=== PATIENT | female | born 2005 | race Caucasian/White ===

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

== ENCOUNTER 2024-01-01 23:40 | Emergency (ER) | payer BC, MEDICAID, SELFPAY ==
--- NOTE | ~2024-01-01 | XR_ITS ---
EXAMINATION: XR CHEST CLINICAL INFORMATION: Cough. COMPARISON: 04/20/2012. TECHNIQUE: 2 views of the chest were obtained. FINDINGS: No significant abnormality is noted involving the heart, lungs, mediastinum, bony thorax or soft tissues. XR/XR chest 2V IMPRESSION: Unremarkable examination.
[2024-01-01 23:48] VITALS: BP 122/76; PULSE 110; RESP 19; TEMP 37.7; O2SAT 100; BMI 40.5
--- NOTE | 2024-01-02 00:23 | MHC.EDTECH ---
Patient brought to triage,labs,sars/flu/rsv,and strep obtained and sent to lab.
--- OUTSIDE RECORDS SUMMARY | 2024-01-02 00:23 | XMS_ITS | Continuity of Care Document ---
Author Organization [facility] Address [address] [place] [address]- Care Team Providers Care Contingents Supervisor Name Role Phone Janay Matt MD Primary Care Physician Encounter [facility] [place] Date(s): 03/04/22 - 04/03/22 [facility] [address] [place] [address]- Attending Physician: Brian Flores Admitting Physician: Brian Flores Referring Physician: AdmtrBrian Allergies, Adverse Reactions, Alerts No Known Allergies Medications cetirizine 5 mg oral tablet 2 tablet = 10 mg, By Mouth, Daily, # 60 tablet, 0 Refills, Maintenance, 05/03/19 12:57:48 EDT, Tablet Start Date: 05/03/19 Status: Ordered cyclobenzaprine 10 mg oral tablet 10 mg, 1, tablet, By Mouth, 3 times a day, PRN, # 10 tablet, Refills 0, Tot. Refills 0, Maintenance, for spasm, 09/24/19 6:12:00 EST, Print Requisition, 154, cm, 09/24/19 1:23:00 EST, Height, 79.4, kg, 09/24/19 1:23:00 EST, Dry Weight Start Date: 09/24/19 Status: Ordered FLUoxetine 10 mg oral tablet 1 tablet = 10 mg, By Mouth, Daily, # 30 tablet, 0 Refills, Maintenance, 05/03/19 12:57:52 EDT, Tablet Start Date: 05/03/19 Status: Ordered ibuprofen 600 mg oral tablet 600 mg, 1, tablet, By Mouth, Every 6 hours, as needed for pain, # 20 tablet, Refills 0, Tot. Refills 0, Maintenance, 09/24/19 6:11:00 EST, Print Requisition, 154, cm, 09/24/19 1:23:00 EST, Height, 79.4, kg, 09/24/19 1:23:00 EST, Dry Weight Start Date: 09/24/19 Status: Ordered Problem List Condition Effective Dates Status Health Status Inform ant Childhood obesity(Confirmed) Active Social History Social History Type Response Smoking Status Never smoker; Tobacc o user in household: No entered on: 08/08/15 Sex
--- OUTSIDE RECORDS SUMMARY | 2024-01-02 00:24 | XMS_ITS | Continuity of Care Document ---
Author Organization [facility] Address Unknown Care Team Providers Care Cage Maker Name Role Phone Janay Matt MD Primary Care Physician Encounter [place] Date(s): 01/28/22 - 02/27/22 [facility] Allergies, Adverse Reactions, Alerts No Known Allergies [...]
--- OUTSIDE RECORDS SUMMARY | 2024-01-02 00:24 | XMS_ITS | Continuity of Care Document ---
Author Organization [facility] Address [address] [place] [address]- Care Team Providers Care Rolloff Truck Driver Name Role Phone Janay Matt MD Primary Care Physician [place] [facility] [place] - 04/03/22 [facility] [address] [place] [address]- Attending Physician: Patricia Tran MD Admitting Physician: Patricia Tran MD Referring Physician: Janay Matt MD Allergies, Adverse Reactions, Alerts No Known Allergies [...]
--- OUTSIDE RECORDS SUMMARY | 2024-01-02 00:24 | XMS_ITS | Continuity of Care Document ---
Author Organization [facility] Address [address] [place] [address]- Care Team Providers Care Scrap Handler Name Role Phone Janay Matt MD Primary Care Physician [phone] [id number] Date(s): 01/31/22 - 04/26/22 [facility] [address] [place] [address]- Attending Physician: Nadeen Pimentel RD Admitting Physician: Nadeen Pimentel RD Referring Physician: Janay Matt MD Allergies, Adverse [...]
--- OUTSIDE RECORDS SUMMARY | 2024-01-02 00:24 | XMS_ITS | Continuity of Care Document ---
Author Organization [facility] Address [address] [place] [address]- Care Team Providers Care Concrete Grinder Operator Name Role Phone Janay Matt MD Primary Care Physician [place] [facility] [place] [facility] [place] [id number] Date(s): 03/27/22 - 04/26/22 [facility] [address] [place] [address]- Attending Physician: AdmBrian carrizales Admitting Physician: Admtr, Ar8 Referring Physician: Admtr, Ar8 Allergies, Adverse Reactions, Alerts No Known Allergies [...]
--- OUTSIDE RECORDS SUMMARY | 2024-01-02 00:24 | XMS_ITS | Continuity of Care Document ---
Author Organization [facility] Address Unknown Care Team Providers Care Equipment Processer Storage Name Role Phone Janay Matt MD Primary Care Physician Encounter [facility] [place] Date(s): 01/31/22 - 04/03/22 [facility] Attending Physician: Patricia Tran MD Admitting Physician: [...]
--- OUTSIDE RECORDS SUMMARY | 2024-01-02 00:24 | XMS_ITS | Continuity of Care Document ---
Author Organization [facility] ter Address [address] [place] [address]- Care Team Providers Care Creasing Machine Operator Name Role Phone Janay Matt MD Primary Care Physician [place] [facility] [place]/24/[place] - 09/24/[address] [address]- [facility] Encounter Diagnosis Cervical strain, acute(Final) - 09/24/19 Discharge Disposition: A-D/C Home Attending Physician: Nydia Winters MD Admitting Physician: Nydia Winters MD Referring Physician: Not on Staff, Referring MD Allergies, Adverse Reactions, Alerts Substance Reaction Severity Status NKA Active Medications cetirizine 5 mg oral tablet 2 [...] Health Status Inform ant Childhood obesity(Confirmed) Active Vital Signs Most recent to oldest [Reference Range]: 1 2 3 Height 154 cm (09/24/19 1:23 AM) 154 cm (09/24/19 12:38 AM) Weight 79.4 kg (09/24/19 1:23 AM) 79.4 kg (09/24/19 12:38 AM) Oxygen Saturation [94-100 %] 99 % (09/24/19 6:25 AM) 100 % (09/24/19 3:02 AM) 99 % (09/24/19 12:38 AM) Pulse Rate [55-90 bpm] 80 bpm (09/24/19 6:25 AM) 74 bpm (09/24/19 3:02 AM) 90 bpm (09/24/19 12:38 AM) Body Mass Index [18.5-24.99] 33.48 *>HHI* (09/24/19 12:38 AM) Blood Pressure [80-130/50-80 mm Hg] 95/62mm Hg (09/24/19 6:25 AM) 104/66mm Hg (09/24/19 3:02 AM) 108/63mm Hg (09/24/19 12:38 AM) Respiratory Rate [16-30 br/min] 18 br/min (09/24/19 6:25 AM) 17 br/min (09/24/19 3:02 AM) 20 br/min (09/24/19 12:38 AM) Temperature [96.8-100.4 DegF] 97.2 DegF (09/24/19 6:25 AM) 97.8 DegF (09/24/19 3:02 AM) 99.3 DegF (09/24/19 12:38 AM) Mode of Delivery (Oxygen) Room air (09/24/19 6:25 AM) Room air (09/24/19 3:02 AM) Room air (09/24/19 12:38 AM) Blood pressure sites Arm, right (09/24/19 6:25 AM) Arm, left (09/24/19 3:02 AM) Arm, left (09/24/19 12:38 AM) Temperature Route Oral (09/24/19 6:25 AM) Oral (09/24/19 3:02 AM) Oral (09/24/19 12:38 AM) Dry Weight 79.4 kg (09/24/19 1:23 AM) 79.4 kg (09/24/19 12:38 AM) Weight Obtained Via Standing scale (09/24/19 12:38 AM) Dry Weight Obtained Via Standing scale (09/24/19 12:38 AM) Social History Social History Type Response Smoking Status Never smoker; Tobacc o user in household: No entered on: 08/08/15 Sex
--- OUTSIDE RECORDS SUMMARY | 2024-01-02 00:24 | XMS_ITS | Continuity of Care Document ---
Author Organization [facility] ter Address [address] [place] [address]- Care Team Providers Care Chin Strap Sewer Name Role Phone Vernell URBINA, Janay Primary Care Physician En[place] [facility] [place] Date(s): 11/13/23 - 11/13/[address] [address] Attending Physician: Lala Davalos NP Allergies, Adverse Reactions, Alerts No Known Allergies [...] Date: 09/24/19 Status: Ordered Problem List Condition Confirmation Course Effective Dates Status Health St [facility] Informant Childhood obesity Confirmed Active Social History Social History Type Response Smoking Status Never smoker; Tobacc o user in household: No entered on: 08/08/15 Sex Patient Care team information Care Team Personnel Name: Janay Matt MD Position: S Physician - Pediatrics Member Role: PCP Address: Address: [address] [place] [address] [facility] [place], [place] [address] Care Team Related Persons Name: CHARITY PEREZ Address: [address] [address] Name: AGUSTIN PEREZ Address: [address] [address]
--- OUTSIDE RECORDS SUMMARY | 2024-01-02 00:24 | XMS_ITS | Continuity of Care Document ---
Author Organization [facility] em Address Unknown Care Team Providers Care Pharmacy Analyst Name Role Phone Janay Matt MD Primary Care Physician [place] [facility] [place](s): 03/04/22 - 04/03/22 [facility] Attending Physician: Brian Flores Admitting Physician: Brian Flores Referring Physician: Brian Flores Allergies, Adverse Reactions, Alerts No Known Allergies [...]
[2024-01-02 00:28] LABS: MANUAL DIFF FLAG NO
[2024-01-02 00:29] LABS: Basophils Absolute Auto 0.1 X10*3/uL (0.0-0.2); Eosinophils Absolute Auto 0.2 X10*3/uL (0.0-0.4); Eosinophils Percent Auto 2.4 % (0-4); Hematocrit 42.7 % (37.0-47.0); Hemoglobin 14.3 g/dl (12.0-16.0); Imm Gran Abs Auto 0.03 X10*3/uL (0.00-0.03); Imm Gran Pct Auto 0.4 % (0.0-0.4); Lymphocytes Absolute Auto 1.4 X10*3/uL (1.2-4.9); Lymphocytes Percent Auto 20.5 % (20-40); Mean Corpuscular HGB Conc 33.5 g/dl (31.0-35.0); Mean Corpuscular Hemoglobin 27.3 pg (27.0-33.0); Mean Corpuscular Volume 81.6 fL (80.0-98.0); Mean Platelet Volume 10.1 fL (9.4-12.3); Monocytes Absolute Auto 0.6 X10*3/uL (0.1-1.2); Monocytes Percent Auto 9.1 % (2-11); Neutrophils Absolute Auto 4.5 x10*3/uL (2.0-8.3); Neutrophils Percent Auto 66.6 % (45-73); Platelet Count 316 X10*3/uL (160-400); Red Blood Count 5.23 X10*6/uL (4.20-5.50); Red Cell Distribution Width 12.3 % (11.0-16.0); White Blood Count 6.7 X10*3/uL (4.8-10.8)
[2024-01-02 00:34] LABS: Appearance Urine Cloudy; Color Urine Yellow; Glucose Urine UA Negative (Negative); Leukocyte Esterase Urine Moderate (2+) (Negative); Nitrite Urine Negative (Negative); Specific Gravity - Urine 1.025 (1.005-1.025); UMIC TRIGGER UACC YES; Urine Blood Negative (Negative); Urine Ketones Trace mg/dL (Negative); Urine Protein 30 (1+) mg/dL (Neg-Trace)
[2024-01-02 00:40] LABS: IDNOW Serial# 08D9AD1C; Strep A Nucleic Acid Negative (Negative)
[2024-01-02 00:42] LABS: Bacteria Urine 1+ (None Seen); Hyaline Casts Urine 0-2 /LPF (0-2); RBC Urine 0-2 /HPF (0-2); UACC Culture Trigger YES; WBC Urine 21-50 /HPF (0-5)
[2024-01-02 00:50] LABS: Alanine Aminotransferase 54 U/L (0-31); Albumin Level 4.5 g/dL (3.5-5.0); Alkaline Phosphatase 78 U/L (39-117); Anion Gap 13 (12-20); Aspartate Amino Transferase 42 U/L (5-31); Blood Urea Nitrogen 6 mg/dL (9-16); Calcium 9.6 mg/dL (8.4-10.2); Carbon Dioxide 25 mmol/L (22-29); Chloride 102 mmol/L (96-108); Creatinine Clr Calc Pharmacy 104.6; Estimated Glomerular Filt Rate > 60; Glucose Random 101 mg/dL (60-115); Lipase 19 U/L (8-78); Potassium 3.5 mmol/L (3.3-5.1); Sodium 136 mmol/L (135-145); Total Protein 8.3 g/dL (6.5-8.0)
[2024-01-02 00:52] LABS: HCG Quantitative < 2 mIU/mL
[2024-01-02 01:13] LABS: Influenza A PCR NEGATIVE (Negative); Influenza B PCR NEGATIVE (Negative); Resp Syncy Virus RNA Qual PCR NEGATIVE (Negative); SARS COV2 PCR INHOUSE NEGATIVE (Negative)
--- NOTE | 2024-01-02 01:40 | PC.NURSE ---
Pt is a pleasant 18 y/o female who presents for evaluation of ongoing cough, frequent vomiting, and back pain since flu diangosis in Oct. ? fevers. Pt reports poor PO intake for the past several days and black colored stool/diarrhea today. Has tried OTC remedies without relief. Denies travel, trauma, and contact with other sick individuals. Cough is occassionally productive with whitish/kuhn mucus. Denies chance of , LMP 2-3 weeks ago. Mother at bedside.
--- NOTE | 2024-01-02 03:06 | PC.NURSE ---
Pt is resting in room, frequently coughing, unable to sleep. Pt is arousable with stimuli and mother remains at the bedside. Pt changes positions in bed as desired and uses the call light as needed. Will continue to monitor for changes.
--- NOTE | 2024-01-02 03:35 | ED_ITS ---
HPI - Nausea/Vomiting/Diarrhea General Chief complaint: Nausea/Vomiting/Diarrhea Stated complaint: Vomiting Time Seen by Provider: 01/02/24 03:26 Source: patient Mode of arrival: ambulatory Limitations: no limitations History of Present Illness HPI Narrative: Patient comes to the emergency room complaining of nausea vomiting, UTI symptoms and cough for about 2 months now. Patient is further chills. Related Data Previous Rx's ?Medication ?Instructions ?Recorded cefuroxime axetil 500 mg tablet 500 mg PO BID 3 days #6 tabs 11/07/23 ondansetron 4 mg disintegrating 4 mg PO Q6-8H PRN nausea and 11/07/23 tablet vomiting #10 tabs benzonatate 100 mg capsule 100 mg PO TID PRN cough #12 caps 01/02/24 levofloxacin 500 mg tablet 500 mg PO DAILY #9 tabs 01/02/24 ondansetron 4 mg disintegrating 4 mg PO Q6H PRN nausea and 01/02/24 tablet vomiting #14 tabs Allergies Allergy/AdvReac Type Severity Reaction Status Date / Time No Known Allergies Allergy Verified 01/01/24 23:53 Review of Systems 2 Review of Systems: Constitutional : No Weight loss, No Fever, No Chills, No Night Sweats, No Fatigue, No Malaise ENT/Mouth : No Hearing loss, No Ear Pain, No Nasal Congestion, No Sinus Pain, No Hoarseness, No sore throat, No Rhinorrhea, No Swallowing Difficulty Eyes: No Eye Pain, No Swelling, No Redness, No Foreign Body, No Discharge, No Vision Changes Cardiovascular : No Chest Pain, No SOB, No Dyspnea on Exertion, No Orthopnea, No Edema, No Palpitations Respiratory : Complaining of dry Cough, No Sputum, No Wheezing, No Smoke Exposure, No Dyspnea Gastrointestinal : Complaining of nausea and vomiting, No Diarrhea, No Constipation, No abdominal Pain, No Hematochezia, No Melena Genitourinary : no irregular bleeding, complaining of Dysuria, No Urinary Frequency, No Hematuria, No Urinary Incontinence, No Urgency, No Flank Pain, No Urinary Flow Changes, No Hesitancy Musculoskeletal : No joint pain, complaining of diffuse Myalgias, No Joint Swelling Skin : No Skin Lesions, No rash Neuro : No Weakness, No Numbness, No Paresthesias, No Loss of Consciousness, No Dizziness, No Headache Psych : No Anxiety/Panic, No Depression, No SI/HI/AH/VH, No Social Issues, Heme/Lymph: No Bruising, No Bleeding,No Lymphadenopathy Endocrine : No Polyuria, No Polydipsia, No Temperature Intolerance [facility] Social History Social History Advance Directives: No Advance Directives Information Provided: Yes Physical Exam 2 Vital Signs: Vital Signs: Last Vital Signs Temp 100 F 01/01/24 23:48 Pulse 110 H 01/01/24 23:48 Resp 19 01/01/24 23:48 BP 122/76 01/01/24 23:48 Pulse Ox 100 01/01/24 23:48 O2 Del Method Room Air 01/01/24 23:48 BMI result Body Mass Index 40.5 Const: Other: Appearance: Alert. Oriented X3. No acute distress. Eyes: Pupils equal, round and reactive to light. ENT: Pharynx normal. Neck: Normal inspection. Neck supple. No lymph nodes noted. No crepitus CVS: Normal heart rate and rhythm. Pulses normal. Normal S1 and S2 Respiratory: No respiratory distress. Breath sounds normal. No Wheezing. No rales Abdomen: Soft and nontender. No rigidity. No distention. Skin: Skin warm and dry. Normal skin color. Normal skin turgor. Extremities: No lower extremity edema. No Lacerations. No Rash Neuro: Oriented X 3. No motor deficit. No sensory deficit. Moving all extremities. No slurred speech. CN 2 through 12 grossly intact Psych: calm, cooperative, normal affect Medical Decision Making Medical Decision Making [facility] Narrative: -my interpretation of labs: Normal hematology and chemistry, negative hCG, normal LFTs, patient negative for COVID, influenza, RSV, positive for UTI. -discussed with the patient the above-mentioned, patient has a UTI. This time, patient will be given levofloxacin. I reviewed patient's previous records, patient is susceptible to all antibiotics. -discussed with the patient that the cough may last up to 10 weeks. Likely secondary to influenza, which she was diagnosed in October. Differential Diagnosis Differential Diagnoses: The differential diagnosis associated with the presentation includes (Bronchitis, viral illness, UTI) Lab Data [facility] Lab Attestation statement: I reviewed the patient's lab results. 01/02/24 00:18 01/02/24 00:18 Labs: Lab Results 01/02/24 Range/Units 00:18 WBC 6.7 (4.8-10.8) X10*3/uL RBC 5.23 (4.20-5.50) X10*6/uL Hgb 14.3 (12.0-16.0) g/dl Hct 42.7 (37.0-47.0) % MCV 81.6 (80.0-98.0) fL MCH 27.3 (27.0-33.0) pg MCHC 33.5 (31.0-35.0) g/dl RDW 12.3 (11.0-16.0) % Plt Count 316 D (160-400) X10*3/uL MPV 10.1 (9.4-12.3) fL Immature Gran % (Auto) 0.4 (0.0-0.4) % Neut % (Auto) 66.6 (45-73) % Lymph % (Auto) 20.5 (20-40) % [place] % (Auto) 9.1 (2-11) % Eos % (Auto) 2.4 (0-4) % Baso % (Auto) 1.0 (0-2) % Lymph # (Auto) 1.4 (1.2-4.9) X10*3/uL [place] # (Auto) 0.6 (0.1-1.2) X10*3/uL Eos # (Auto) 0.2 (0.0-0.4) X10*3/uL Baso # (Auto) 0.1 (0.0-0.2) X10*3/uL Abs Immat Gran (auto) 0.03 (0.00-0.03) X10*3/uL Absolute Neuts (auto) 4.5 (2.0-8.3) x10*3/uL Absolute Nucleated RBC 0.000 (0.0-0.012) X10*3/uL Nucleated RBC % (auto) 0.0 (0.0-0.2) /100WBC Sodium 136 (135-145) mmol/L Potassium 3.5 (3.3-5.1) mmol/L Chloride 102 (96-108) mmol/L Carbon Dioxide 25 (22-29) mmol/L Anion Gap 13 (12-20) BUN 6 L (9-16) mg/dL Creatinine 0.85 (0.5-1.4) mg/dL Estim Creat Clear Calc 104.6 Estimated GFR > 60 Random Glucose 101 (60-115) mg/dL Calcium 9.6 (8.4-10.2) mg/dL Total Bilirubin 1.0 (0.0-1.0) mg/dL AST 42 H (5-31) U/L ALT 54 H (0-31) U/L Alkaline Phosphatase 78 (39-117) U/L Total Protein 8.3 H (6.5-8.0) g/dL Albumin 4.5 (3.5-5.0) g/dL Lipase 19 (8-78) U/L Beta HCG, Quant < 2 mIU/mL Urine Color Yellow Urine Appearance Cloudy Urine pH 6.0 (5.0-9.0) Ur Specific [place] 1.025 (1.005-1.025) Urine Protein 30 (1+) H (Neg-Trace) mg/dL Urine Glucose (UA) Negative (Negative) mg/dL Urine Ketones Trace (Negative) mg/dL Urine Blood Negative (Negative) Urine Nitrite Negative (Negative) Ur Leukocyte Esterase Moderate (2+) H (Negative) Urine RBC 0-2 (0-2) /HPF Urine WBC 21-50 H (0-5) /HPF Ur Squamous Epith Cells 11-20 (0-2) /HPF Urine Bacteria 1+ (None Seen) Hyaline Casts 0-2 (0-2) /LPF Influenza Type A (PCR) NEGATIVE (Negative) Influenza Type B (PCR) NEGATIVE (Negative) RSV RNA Qual (PCR) NEGATIVE (Negative) SARS-CoV-2 RNA (RT-PCR) NEGATIVE (Negative) S. pyogenes GrpA AMIRAH Negative (Negative) Discharge Plan Discharge Clinical Impression: Nausea & vomiting, UTI (urinary tract infection), Cough Patient Disposition: Home, Self-Care Instructions: Urinary Incontinence (ED), Acute Nausea and Vomiting (ED), Chronic Cough (ED) Additional Instructions: Please follow-up with your primary care physician tomorrow. If you have any worsening or new symptoms, please return to the emergency room or call 911 Prescriptions: New ondansetron 4 mg tablet,disintegrating 4 mg PO Q6H PRN (Reason: nausea and vomiting) Qty: 14 0RF levofloxacin 500 mg tablet 500 mg PO DAILY Qty: 9 0RF benzonatate 100 mg capsule 100 mg PO TID PRN (Reason: cough) Qty: 12 0RF No Action cefuroxime axetil 500 mg tablet 500 mg PO BID 3 Days Qty: 6 0RF ondansetron 4 mg tablet,disintegrating 4 mg PO Q6-8H PRN (Reason: nausea and vomiting) Qty: 10 0RF Print Language: Kuwaiti
[2024-01-02] MEDS: Benzonatate 100 MG CAPSULE PO (03:52)
[2024-01-02] MEDS: levoFLOXacin 500 MG TABLET PO (03:53)
[2024-01-02] MEDS: Ondansetron ODT 4 MG TAB.RAPDIS TRANSLINGU (04:09)
[2024-01-02 04:25] VITALS: BP 121/67; PULSE 95; RESP 16; TEMP 37; O2SAT 97
== END 2024-01-02 04:25 | disposition home or self-care (01) ==
PROVIDERS: Emergency Provider Emergency Medicine
DX: N39.0 Urinary tract infection, site not specified (principal); R11.2 Nausea with vomiting, unspecified; R05.9 Cough, unspecified; Z03.818 Encounter for observation for suspected exposure to other biological agents ruled out; Z79.899 Other long term (current) drug therapy
CPT/HCPCS: 0241U; 36415; 71046; 80053; 81001; 83690; 84702; 85025; 87086; 87651; 99282; 99283